=== PATIENT | male | born 1970 | race Caucasian/White ===

== ENCOUNTER 2021-11-19 18:50 | Emergency (ER) | payer OTHER, SELFPAY ==
[2021-11-19 19:02] VITALS: BP 158/86; PULSE 75; RESP 16; TEMP 36.6; O2SAT 97; BMI 33.0
--- NOTE | 2021-11-19 20:44 | PC.NURSE ---
Pt states that he was tx for strep throat 3 wks ago, was seen at [facility] on Sat and given 4 days of prednisone, in on 3rd day today with only slight improvement. States that he does not want cultures of throat, I just want a scope stuck down my throat to see what is going on in there, that is all I want. Pt report that the soreness is only on the left side of the throat, ranging from 2-5/10, pt is able to eat and drink, occ has vocal change with talking.
--- NOTE | 2021-11-19 20:47 | ED.URI ---
HPI - URI/Sore Throat General Chief Complaint: Upper Respiratory Symptoms Stated Complaint: SORE THROAT 3WKS Time Seen by Provider: 11/19/21 20:19 History of Present Illness HPI Narrative: Patient is a 51-year-old male who is for presents with ongoing throat pain for the last few weeks. He just finished a course of antibioticsm, amoxicillin, said he was never tested for strep he just wanted antibiotics. That hurts on the low side. He has no difficulty swallowing food or liquids he has no swelling. He has no fever or cough. He was seen and evaluated at the walk-in clinic 2 days ago who started him on some prednisone he was given short burst he has taken 2 days of that says it is not helping. He is requesting that he have a cam a go into his throat and block. I have explained this is not indicated and not something that we do in the emergency department. He is currently frustrated he does not have a primary care provider, he would like a referral to ENT. He also says that he has tested for COVID every 2 weeks because of his work he has not had COVID. Related Data Previous Rx's Medication Instructions Recorded prednisone 20 mg tablet 40 mg PO DAILY 4 Days #8 tab 11/17/21 Allergies Allergy/AdvReac Type Severity Reaction Status Date / Time No Known Drug Allergies Allergy Unverified 11/17/21 14:50 Review of Systems Review of Systems Narrative: GENERAL: Denies chills, fatigue, malaise, fever, sweats, travel HEENT: See HPI RESPIRATORY: Denies dyspnea, cough, wheezing, hemoptysis, sputum. CARDIOVASCULAR: Denies chest pain, palpitations, orthopnea, edema GASTROINTESTINAL: Denies nausea, vomiting, abdominal pain, diarrhea, constipation, melena. : Denies dysuria, frequency, incontinence, hematuria, urinary retention, flank pain. MUSCULOSKELETAL: Denies weakness, joint pain, or bony pain SKIN: No rash, no erythema, no pruritus NEUROLOGIC: Denies weakness, dizziness, headache, numbness, change in speech, confusion PSYCHIATRIC: No concerning psychosocial issues. 12 point review of systems is negative except for those stated above and HPI Patient History Social History Smoking Status: Never smoker Smoking Status: Never smoker Substance Use Type: does not use Exam Initial Vital Signs Initial Vital Signs: Vital Signs Temperature 97.9 F 11/19/21 19:02 Pulse Rate 75 11/19/21 19:02 Respiratory Rate 16 11/19/21 19:02 Blood Pressure 158/86 H 11/19/21 19:02 Pulse Oximetry 97 11/19/21 19:02 GENERAL: Well-appearing, well-nourished and in no acute distress. ENT: No uvula swelling no deviation no enlarged tonsils no tonsillar exudate no cervical lymphadenopathy no stridor no tongue swelling lip swelling CARDIOVASCULAR: peripheral pulses in tact, cap refill <2 sec RESPIRATORY: No respiratory distress, speaks in full sentences without difficulty [ABDOMEN: Soft, nontender, no guarding or rebound] EXTREMITIES: Normal range of motion, no clubbing or edema. Neurovascularly intact NEUROLOGICAL: Cranial nerves II through XII grossly intact. Normal gait and speech. SKIN: Warm, dry, no petechiae, no rashes or lesions. Course Vital Signs Vital signs: Vital Signs - 8 hr 11/19/21 19:02 Temperature 97.9 F Pulse Rate 75 Respiratory Rate 16 Blood Pressure 158/86 H Pulse Oximetry 97 MDM - URI/Sore Throat MDM Narrative Medical decision making narrative: At this time patient has no fever no difficulty swallowing no significant swelling. At this time no need for any imaging or further workup. He does not want COVID test or strep test I really see no indication for these either. I have explained to him that what he wants is not available in the emergency department nor is it emergent procedure. I do recommend that he see ENT I do recommend he establish with a primary care provider for offical referral to ENT. He is given phone numbers for both Discharge Plan Departure Patient Disposition: Home Clinical Impression: Throat irritation Instructions: DI for Pharyngitis/Tonsillopharyngitis -- Adult Activity Restrictions/Additional Instructions: *You have been diagnosed with throat irritation *What to do: Uncertain that the system is so complicated. At this time there is no indication for any antibiotics. You may need to see an ENT specialist Dr. Man in may need a referral for him. You may also try [id number] antacid or allergy medication to see if that helps. *Continue to take medications as directed Priyanka or Claritin once daily as directed Omeprazole 20 mg once a day *Follow up with your primary care provider in 2-3 days or call [phone] Dr. Man, call to schedule evaluation *Return to ER if you should have inability to swallow liquids or food, fever, pain or any new, worsening or concerning symptoms Prescriptions: No Action prednisone 20 mg tablet 40 mg PO DAILY 4 Days Qty: 8 0RF Referrals: Wil Man MD [Physician] - Stand Alone Forms: Work Release Note
== END 2021-11-19 21:36 | disposition home or self-care (01) ==
PROVIDERS: Emergency Provider Emergency Medicine
DX: J02.9 Acute pharyngitis, unspecified (principal)
CPT/HCPCS: 99281